=== PATIENT | female | born 2000 | race Caucasian/White ===

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

== ENCOUNTER 2023-09-02 20:23 | Emergency (ER) | payer SELFPAY ==
[~2023-09-02] VITALS: Ht 162.5 cm; Wt 59.0 kg
[2023-09-02] MEDS ORDERED: METRONIDAZOLE500 M1 PO (21:33)
[2023-09-02] MEDS ORDERED: METRONIDAZOLE 500 MG TAB PO ONE (21:35)
[2023-09-02] MEDS ORDERED: AZITHROMYCIN 250 MG TAB PO ONE (21:35)
== END 2023-09-02 21:47 | disposition home or self-care (01) ==
LOC: ED 20:23
DX: N89.8 Other specified noninflammatory disorders of vagina (principal)